=== PATIENT | female | born 1990 | race Caucasian/White ===

== ENCOUNTER 2016-10-03 19:54 | Emergency (ER) | payer BC, MEDICAID ==
[2016-10-03 20:06] VITALS: BP 124/75
[2016-10-03] MEDS ORDERED: Ketorolac 60 MG/2 ML SDV IM ONE (20:20)
[2016-10-03] MEDS ORDERED: Ondansetron 4 MG Tab.DIS PO ONE (20:20)
[2016-10-03] MEDS ORDERED: Haloperidol Lactate 5 MG/ML SDV IM ONE (20:20)
[2016-10-03] MEDS ORDERED: diphenhydrAMINE 50 MG/ML SDV IM ONE (20:20)
--- NOTE | 2016-10-03 20:27 | EDM.PDOC ---
ED HPI GENERAL MEDICAL PROBLEM - General Chief Complaint: Headache Stated Complaint: MIGRAINE Time Seen by Provider: 10/03/16 20:15 Source of Information: Reports: Patient History Limitations: Reports: No Limitations - History of Present Illness INITIAL COMMENTS - FREE TEXT/NARRATIVE: Patient is a 26-year-old female presents ED complaining of right-sided headache behind her right eye described as a throbbing sensation with waxing and waning intensity for the past 3 days. Patient has some photosensitivity with hyperacusis. States she's has been utilizing ibuprofen with minimal relief. Appetite has been in place. She denies any recent trauma. 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 She has never been formally diagnosed with migraine headache by a neurologist. Menstrual cycle ended approximately one week ago. She denies being . Denies any nausea or vomiting, fever/chills , neck stiffness, vision changes, numbness or tingling, or any additional neurological symptoms. This is not described as the worse headache of her life. 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: - Past Surgical History GI Surgical History: Reports: Cholecystectomy Social & Family History - Family History Family Medical History: Noncontributory - Tobacco Use Smoking Status *Q: Never Smoker Second Hand Smoke Exposure: No - Caffeine Use Caffeine Use: Reports: Soda - Recreational Drug Use Recreational Drug Use: No ED ROS GENERAL - Review of Systems Review Of Systems: See Below Constitutional: Reports: No Symptoms HEENT: Reports: No Symptoms Respiratory: Reports: No Symptoms Cardiovascular: Reports: No Symptoms Musculoskeletal: Denies: Neck Pain, Back Pain Neurological: Reports: Headache. Denies: Confusion, Dizziness, Numbness, Tingling, Difficulty Walking - Physical Exam Exam: See Below Exam Limited By: No Limitations General Appearance: Alert, WD/WN, Mild Distress Eye Exam: Bilateral Eye: EOMI, PERRL Ears: Hearing Grossly Normal Nose: Normal Inspection Throat/Mouth: Normal Voice, No Airway Compromise Head Exam: Atraumatic, Normocephalic Neck: Normal Inspection, Supple, Non-Tender, Full Range of Motion. No: Lymphadenopathy (L), Lymphadenopathy (R) Respiratory/Chest: No Respiratory Distress, Lungs Clear, Normal Breath Sounds Cardiovascular: Normal Peripheral Pulses, Regular Rate, Rhythm Neuro Exam (Abbreviated): Alert, Oriented, CN II-XII Intact, Normal Cognition, Normal Gait, No Motor/Sensory Deficits, Other (Cerebellar function intact: finger to nose, rapid alternating movements, and heel to kaiser. ) Back Exam: Normal Inspection Extremities: Normal Inspection, Non-Tender, No Pedal Edema, Normal Capillary Refill Psychiatric: Normal Affect, Normal Mood Skin Exam: Warm, Dry, Intact, Normal Color Course - Vital Signs Last Recorded V/S: Last Vital Signs Temp 97.7 F 10/03/16 20:05 Pulse 59 L 10/03/16 20:05 Resp 20 10/03/16 20:05 BP 124/75 10/03/16 20:05 Pulse Ox 98 10/03/16 20:05 - Orders/Labs/Meds Meds: Medications Discontinued Medications Generic Name Dose Route Start Last Admin Trade Name Sue PRN Reason Stop Dose Admin Diphenhydramine HCl 50 mg 10/03/16 20:20 10/03/16 20:40 Benadryl IM 10/03/16 20:21 50 mg ONETIME ONE Administration Haloperidol Lactate 5 mg 10/03/16 20:20 10/03/16 20:39 Haldol IM 10/03/16 20:21 5 mg ONETIME ONE Administration Ketorolac Tromethamine 60 mg 10/03/16 20:20 10/03/16 20:41 Toradol IM 10/03/16 20:21 60 mg ONETIME ONE Administration Ondansetron HCl 4 mg 10/03/16 20:20 10/03/16 20:37 Zofran Odt PO 10/03/16 20:21 4 mg ONETIME ONE Administration - Re-Assessments/Exams Free Text/Narrative Re-Assessment/Exam: Patient complaining of headache: Migraine symptomatology. Located to the right side with photophobia, hyperacusis, throbbing sensation for the past 3 days. She 's had good oral intake of fluids and food. She has no concerning findings at this time. Will treat her for her headache utilizing Haldol, Benadryl, Toradol, and Zofran. These will be IM injections minus Zofran. Patient is okay with this treatment plan. 10/03/16 20:58 Headache is improving slowly. Medications were given approximately 35 minutes ago. She is ready be discharged home. Will discharge her home with instructions as documented. Departure - Departure Time of Disposition: 20:58 Disposition: Home, Self-Care 01 Condition: Good Clinical Impression: Headache around the eyes - Discharge Information Instructions: General Headache Without Cause, [id number] Referrals: Andreina Nolasco PA-C [Primary Care Provider] - Forms: ED Department Discharge Additional Instructions: No driving this evening since receiving a sedative medications while in the ED. Suggest going home finding a dark room to fall sleep with no distractions. Continue to push the fluids. Ensure adequate rest. Take Tylenol and ibuprofen in alternating fashion for pain. Can utilize cold compresses to the head as needed. Follow-up with your primary care provider as needed. Return to ED for any new or worsening symptoms as discussed.
== END 2016-10-03 21:13 | disposition home or self-care (01) ==
LOC: JD.ED 19:54
DX: R51 Headache (principal); Z90.49 Acquired absence of other specified parts of digestive tract; Z79.899 Other long term (current) drug therapy
CPT/HCPCS: 96372; 99283; A9270; J1200; J1630; J1885

== ENCOUNTER 2018-08-17 04:58 | Inpatient (IN) | payer BC ==
[~2018-08-17 04:58] MED LIST: Sodium Chloride 0.9% 10 ML Syringe FLUSH PRN
[2018-08-17] MEDS: Lactated Ringers 1,000 ML IV SCH ×4 (06:18→19:45)
[2018-08-17] MEDS ORDERED: ceFAZolin 1 GM in Premix Bag 1 BAG IV ONE (07:00)
[2018-08-17] MEDS ORDERED: Metoclopramide 10 MG/2 ML SDV IVPUSH ONE (07:00)
[2018-08-17] MEDS ORDERED: ceFAZolin 2 GM in Premix Bag 1 BAG IV ONE (07:00)
[2018-08-17] MEDS ORDERED: Citric Acid/Sodium Citrate Solution 30 ML Cup PO ONE (07:00)
[2018-08-17] MEDS ORDERED: Oxytocin 10 Units/1 ML SDV ONE (07:18)
[2018-08-17] MEDS ORDERED: Ketorolac 30 MG/ML SDV ONE (07:18)
[2018-08-17] MEDS ORDERED: ceFAZolin 1 GM Vial ONE ×2 (07:18→07:19)
[2018-08-17] MEDS ORDERED: Morphine PF 10 MG/10 ML SDV ONE (07:18)
[2018-08-17] MEDS ORDERED: Lactated Ringers 0 ML ONE (07:18)
[2018-08-17] MEDS ORDERED: Ondansetron 4 MG/2 ML SDV ONE (07:18)
[2018-08-17] MEDS ORDERED: Oxytocin/Lactated Ringers 10 UNIT/1,000 ML BAG IV SCH (07:30)
[2018-08-17] MEDS ORDERED: Nalbuphine 20 MG/ML 1 ML Syringe IVPUSH PRN (07:41)
[2018-08-17] MEDS ORDERED: Ondansetron 4 MG Tab.DIS PO PRN (07:41)
[2018-08-17] MEDS ORDERED: Ampicillin 2 GM in Sodium Chloride 0.9% 100 ML IV ONE (07:50)
--- NOTE | 2018-08-17 07:57 | PCM.PRNOTE ---
- Free Text/Narrative Note: PROCEDURE NOTE Procedure Date: 08/17/2018 Pre-operative Diagnosis: 1. at 39 0/7 wks 2. Breech Presentation Post-operative Diagnosis: As above s/p successful external cephalic version Anesthesia: None Description of Operation/Procedure: The risks, benefits, indications, potential complications, and alternatives were explained to the patient and informed consent obtained. Patient was placed in the supine position. Ultrasound was used to confirm complete breech presentation and appropriate [place]. Hands were placed on the patient's abdomen. The breech was elevated out of the pelvis while clockwise traction was applied to the head. Ultrasound confirmed cephalic presentation as well as cardiac activity. The patient tolerated the procedure well and was placed on continuous electronic monitoring following the procedure. Complications: The patient tolerated the procedure well and no complications were noted. Plan: for today cancelled. Will move to induction of labor instead. See H& P for cancelled for remainder of patient history. Will start Ampicillin for GBS positive status and move on to pitocin/AROM when room available. Will plan frequent assessments of continued vertex presentation. Pain management per patient preference. Anticipate Grace Arteaga MD
[2018-08-17] MEDS: Ampicillin 1 GM in Sodium Chloride 0.9% 100 ML IV SCH ×3 (12:44→20:13)
[2018-08-17] MEDS ORDERED: diphenhydrAMINE 50 MG/ML SDV IVPUSH PRN (13:13)
[2018-08-17] MEDS ORDERED: fentaNYL 100 MCG/2 ML SDV EPIDUR PRN (13:13)
[2018-08-17] MEDS ORDERED: ePHEDrine 50 MG/ML SDV IVPUSH PRN (13:13)
[2018-08-17] MEDS ORDERED: Bupivacaine/fentaNYL/NS 100 ML Bag EPIDUR PRN (13:13)
--- NOTE | 2018-08-17 13:15 | PCM.PREANE ---
Preanesthetic Assessment - Anesthesia/Transfusion/Family Hx Anesthesia History: Prior Anesthesia Without Reaction Family History of Anesthesia Reaction: No Transfusion History: No Prior Transfusion(s) - Review of Systems General: No Symptoms Pulmonary: No Symptoms Cardiovascular: No Symptoms Gastrointestinal: Abdominal Pain (labor pain) Neurological: No Symptoms Other: Reports: None - Physical Assessment NPO Status Date: 08/17/18 NPO Status Time: 00:00 Pulse: 96 O2 Sat by Pulse Oximetry: 100 Respiratory Rate: 14 Blood Pressure: 118/85 Temperature: 36.8 C Vital Signs: Last Vital Signs Temp 36.8 C 08/17/18 05:24 Pulse 96 08/17/18 05:24 Resp 14 08/17/18 05:24 BP 118/85 08/17/18 05:24 Pulse Ox 100 08/17/18 05:24 Height: 1.6 m Weight: 119.748 kg ASA Class: 2 Mental Status: Alert & Oriented x3 Airway Class: Mallampati = 1 Dentition: Reports: Normal Dentition Thyro-Mental Finger Breadths: 2 Mouth Opening Finger Breadths: 2 ROM/Head Extension: Full Lungs: Clear to Auscultation, Normal Respiratory Effort Cardiovascular: Regular Rate, Regular Rhythm - Lab Values: Laboratory Last Values WBC 8.95 K/mm3 (3.98-10.04) 08/17/18 06:00 RBC 3.42 M/mm3 (3.98-5.22) L 08/17/18 06:00 Hgb 9.4 gm/L (11.2-15.7) L 08/17/18 06:00 Hct 30.0 % (34.1-44.9) L 08/17/18 06:00 MCV 87.7 fl (79.4-94.8) D 08/17/18 06:00 MCH 27.5 pg (25.6-32.2) 08/17/18 06:00 MCHC 31.3 g/dl (32.2-35.5) L 08/17/18 06:00 RDW Std Deviation 50.5 fL (36.4-46.3) H 08/17/18 06:00 Plt Count 280 K/mm3 (182-369) 08/17/18 06:00 MPV 9.2 fl (9.4-12.3) L 08/17/18 06:00 Neut % (Auto) 73.0 % (34.0-71.1) H 08/17/18 06:00 Lymph % (Auto) 15.4 % (19.3-51.7) L 08/17/18 06:00 [place] % (Auto) 9.8 % (4.7-12.5) 08/17/18 06:00 Eos % (Auto) 0.7 (0.7-5.8) 08/17/18 06:00 Baso % (Auto) 0.2 % (0.1-1.2) 08/17/18 06:00 Neut # (Auto) 6.53 K/mm3 (1.56-6.13) H 08/17/18 06:00 Lymph # (Auto) 1.38 K/mm3 (1.18-3.74) 08/17/18 06:00 [place] # (Auto) 0.88 K/mm3 (0.24-0.36) H 08/17/18 06:00 Eos # (Auto) 0.06 K/mm3 (0.04-0.36) 08/17/18 06:00 Baso # (Auto) 0.02 K/mm3 (0.01-0.08) 08/17/18 06:00 Blood Type O POSITIVE 08/17/18 06:00 Gel Antibody Screen Negative 08/17/18 06:00 - Allergies Allergies/Adverse Reactions: Allergies Allergy/AdvReac Type Severity Reaction Status Date / Time red dye Allergy Rash Verified 08/17/18 05:43 Chlorine Allergy Rash Uncoded 08/17/18 05:43 - Anesthesia Plan Pre-Op Medication Ordered: None - Acknowledgements Anesthesia Type Planned: Epidural Pt an Appropriate Candidate for the Planned Anesthesia: Yes Alternatives and Risks of Anesthesia Discussed w Pt/Guardian: Yes Pt/Guardian Understands and Agrees with Anesthesia Plan: Yes PreAnesthesia Questionnaire Gastrointestinal History: Reports: GERD 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: Reports: Polycystic Ovaries, Psychiatric History: Reports: Depression Other Psychiatric History: PPD - Past Surgical History GI Surgical History: Reports: Cholecystectomy - SUBSTANCE USE Smoking Status *Q: Never Smoker Tobacco Use Within Last Twelve Months: No Second Hand Smoke Exposure: No Recreational Drug Use History: No - HOME MEDS Home Medications: Home Meds Omeprazole 20 mg PO DAILY 10/03/16 [History] PNV95/Ferrous Fumarate/FA [ Tablet] 1 tab PO DAILY 08/17/18 [History] buPROPion HCl [Wellbutrin Xl] 300 mg PO DAILY 08/17/18 [History] - CURRENT (IN HOUSE) MEDS Current Meds: Current Medications Lactated Ringer's (Ringers, Lactated) 1,000 mls @ 125 mls/hr IV ASDIRECTED RADHA Last Admin: 08/17/18 06:19 Dose: 125 mls/hr Oxytocin/Lactated Ringer's (Pitocin In Lr 10 Units/1,000 Ml) 10 unit in 1,000 mls @ 100 mls/hr IV ASDIRECTED RADHA; Protocol Ampicillin Sodium 1 gm/ Sodium (Chloride) 100 mls @ 200 mls/hr IV Q4H [facility] Last Admin: 08/17/18 12:44 Dose: 200 mls/hr Nalbuphine HCl (Nubain) 10 mg IVPUSH Q2H PRN PRN Reason: pain Ondansetron HCl (Zofran Odt) 4 mg PO Q4H PRN PRN Reason: Nausea/Vomiting Sodium Chloride (Saline Flush) 10 ml FLUSH ASDIRECTED PRN PRN Reason: Keep Vein Open Discontinued Medications Cefazolin Sodium (Ancef) Confirm Administered Dose 2 gm .ROUTE .STK-MED ONE Stop: 08/17/18 07:19 Cefazolin Sodium (Ancef) Confirm Administered Dose 1 gm .ROUTE .STK-MED ONE Stop: 08/17/18 07:20 Citric Acid/Sodium Citrate (Bicitra Solution) 30 ml PO ONETIME ONE Stop: 08/17/18 07:01 Cefazolin Sodium/Dextrose 1 gm (/ Premix) 50 mls @ 100 mls/hr IV ONETIME ONE Stop: 08/17/18 07:29 Cefazolin Sodium/Dextrose 2 gm (/ Premix) 50 mls @ 100 mls/hr IV ONETIME ONE Stop: 08/17/18 07:29 Lactated Ringer's (Ringers, Lactated) Confirm Administered Dose 2,000 mls @ as directed .ROUTE .STK-MED ONE Stop: 08/17/18 07:19 Ampicillin Sodium 2 gm/ Sodium (Chloride) 100 mls @ 200 mls/hr IV ONETIME ONE Stop: 08/17/18 08:19 Last Admin: 08/17/18 08:03 Dose: 200 mls/hr Ketorolac Tromethamine (Toradol) Confirm Administered Dose 30 mg .ROUTE .STK- MED ONE Stop: 08/17/18 07:19 Metoclopramide HCl (Reglan) 10 mg IVPUSH ONETIME ONE Stop: 08/17/18 07:01 Morphine Sulfate (Duramorph Pf) Confirm Administered Dose 10 mg .ROUTE .STK-MED ONE Stop: 08/17/18 07:19 Ondansetron HCl (Zofran) Confirm Administered Dose 4 mg .ROUTE .STK-MED ONE Stop: 08/17/18 07:19 Oxytocin (Pitocin) Confirm Administered Dose 20 unit .ROUTE .STK-MED ONE Stop: 08/17/18 07:19
[2018-08-17] MEDS: Oxytocin/Lactated Ringers 10 UNIT/1,000 ML BAG IV SCH (13:59)
--- NOTE | 2018-08-17 17:31 | PCM.PNLD ---
Labor Progress Note - VS & Meds Vital Signs: Last Vital Signs Temp 36.8 C 08/17/18 13:15 Pulse 96 08/17/18 13:15 Resp 14 08/17/18 13:15 BP 118/85 08/17/18 13:15 Pulse Ox 100 08/17/18 13:15 Active Medications: Current Medications Diphenhydramine HCl (Benadryl) 25 mg IVPUSH Q6H PRN PRN Reason: Itching Ephedrine Sulfate (Ephedrine Sulfate) 5 mg IVPUSH ASDIRECTED PRN PRN Reason: HYPOTENTSION Fentanyl (Sublimaze) 100 mcg EPIDUR Q3H PRN PRN Reason: Pain Fentanyl/Bupivacaine HCl (Fentanyl/Bupivacaine/Ns 2 Mcg-0.125% 100 Ml) 100 ml EPIDUR ASDIRECTED PRN PRN Reason: Pain Lactated Ringer's (Ringers, Lactated) 1,000 mls @ 125 mls/hr IV ASDIRECTED RADHA Last Admin: 08/17/18 06:19 Dose: 125 mls/hr Oxytocin/Lactated Ringer's (Pitocin In Lr 10 Units/1,000 Ml) 10 unit in 1,000 mls @ 100 mls/hr IV ASDIRECTED RADHA; Protocol Ampicillin Sodium 1 gm/ Sodium (Chloride) 100 mls @ 200 mls/hr IV Q4H RADHA Last Admin: 08/17/18 16:07 Dose: 200 mls/hr Oxytocin/Lactated Ringer's (Pitocin In Lr 10 Units/1,000 Ml) 10 unit in 1,000 mls @ 12 mls/hr IV TITRATE RADHA; Protocol Last Titration: 08/17/18 16:40 Dose: 12 munits/min, 72 mls/hr Nalbuphine HCl (Nubain) 10 mg IVPUSH Q2H PRN PRN Reason: pain Ondansetron HCl (Zofran Odt) 4 mg PO Q4H PRN PRN Reason: Nausea/Vomiting Sodium Chloride (Saline Flush) 10 ml FLUSH ASDIRECTED PRN PRN Reason: Keep Vein Open Discontinued Medications Cefazolin Sodium (Ancef) Confirm Administered Dose 2 gm .ROUTE .STK-MED ONE Stop: 08/17/18 07:19 Cefazolin Sodium (Ancef) Confirm Administered Dose 1 gm .ROUTE .STK-MED ONE Stop: 08/17/18 07:20 Citric Acid/Sodium Citrate (Bicitra Solution) 30 ml PO ONETIME ONE Stop: 08/17/18 07:01 Cefazolin Sodium/Dextrose 1 gm (/ Premix) 50 mls @ 100 mls/hr IV ONETIME ONE Stop: 08/17/18 07:29 Cefazolin Sodium/Dextrose 2 gm (/ Premix) 50 mls @ 100 mls/hr IV ONETIME ONE Stop: 08/17/18 07:29 Lactated Ringer's (Ringers, Lactated) Confirm Administered Dose 2,000 mls @ as directed .ROUTE .STK-MED ONE Stop: 08/17/18 07:19 Ampicillin Sodium 2 gm/ Sodium (Chloride) 100 mls @ 200 mls/hr IV ONETIME ONE Stop: 08/17/18 08:19 Last Admin: 08/17/18 08:03 Dose: 200 mls/hr Ketorolac Tromethamine (Toradol) Confirm Administered Dose 30 mg .ROUTE .STK- MED ONE Stop: 08/17/18 07:19 Metoclopramide HCl (Reglan) 10 mg IVPUSH ONETIME ONE Stop: 08/17/18 07:01 Morphine Sulfate (Duramorph Pf) Confirm Administered Dose 10 mg .ROUTE .STK-MED ONE Stop: 08/17/18 07:19 Ondansetron HCl (Zofran) Confirm Administered Dose 4 mg .ROUTE .STK-MED ONE Stop: 08/17/18 07:19 Oxytocin (Pitocin) Confirm Administered Dose 20 unit .ROUTE .STK-MED ONE Stop: 08/17/18 07:19 - Uterine Contractions Uterine Monitoring Mode: External [place] Contraction Intensity: Moderate - Monitoring Monitor Mode: External Ultrasound Heart Rate (FHR) Baseline: 135 Heart Rate (FHR) Variability: Moderate (6-25 bmp) Accelerations: Present, 15x15 Decelerations: None Strip Review: Category I - Vaginal Exam Dilation (cm): 2-3 Effacement (Percent): 50 Station: -2 Cervical Position: Midposition - Labor Progress (Free Text) Labor Progress: Doing well. Confirmed still vertex with bedside scan. Pitocin at 14. AROM performed with release of moderate amount of clear fluid. Continue present management
[2018-08-17] MEDS ORDERED: Misoprostol 200 MCG Tab ONE (22:00)
[2018-08-17] MEDS ORDERED: Bupivacaine 0.25% 10 ML SDV ONE (22:00)
--- NOTE | 2018-08-18 00:02 | PCM.PNLD ---
Labor Progress Note - VS & Meds Vital Signs: Last Vital Signs Temp 36.8 C 08/17/18 13:15 Pulse 96 08/17/18 13:15 Resp 14 08/17/18 13:15 BP 118/85 08/17/18 13:15 Pulse Ox 100 08/17/18 13:15 Active Medications: Current Medications Diphenhydramine HCl (Benadryl) 25 mg IVPUSH Q6H PRN PRN Reason: Itching Last Admin: 08/17/18 23:28 Dose: 25 mg Ephedrine Sulfate (Ephedrine Sulfate) 5 mg IVPUSH ASDIRECTED PRN PRN Reason: HYPOTENTSION Fentanyl (Sublimaze) 100 mcg EPIDUR Q3H PRN PRN Reason: Pain Last Admin: 08/17/18 19:03 Dose: 100 mcg Fentanyl/Bupivacaine HCl (Fentanyl/Bupivacaine/Ns 2 Mcg-0.125% 100 Ml) 100 ml EPIDUR ASDIRECTED PRN PRN Reason: Pain Last Admin: 08/17/18 19:03 Dose: 100 ml Lactated Ringer's (Ringers, Lactated) 1,000 mls @ 125 mls/hr IV ASDIRECTED RADHA Last Admin: 08/17/18 19:45 Dose: 125 mls/hr Oxytocin/Lactated Ringer's (Pitocin In Lr 10 Units/1,000 Ml) 10 unit in 1,000 mls @ 100 mls/hr IV ASDIRECTED RADHA; Protocol Ampicillin Sodium 1 gm/ Sodium (Chloride) 100 mls @ 200 mls/hr IV Q4H RADHA Last Admin: 08/17/18 20:13 Dose: 200 mls/hr Oxytocin/Lactated Ringer's (Pitocin In Lr 10 Units/1,000 Ml) 10 unit in 1,000 mls @ 12 mls/hr IV TITRATE RADHA; Protocol Last Titration: 08/17/18 23:15 Dose: 16 munits/min, 96 mls/hr Nalbuphine HCl (Nubain) 10 mg IVPUSH Q2H PRN PRN Reason: pain Ondansetron HCl (Zofran Odt) 4 mg PO Q4H PRN PRN Reason: Nausea/Vomiting Sodium Chloride (Saline Flush) 10 ml FLUSH ASDIRECTED PRN PRN Reason: Keep Vein Open Discontinued Medications Cefazolin Sodium (Ancef) Confirm Administered Dose 2 gm .ROUTE .STK-MED ONE Stop: 08/17/18 07:19 Cefazolin Sodium (Ancef) Confirm Administered Dose 1 gm .ROUTE .STK-MED ONE Stop: 08/17/18 07:20 Citric Acid/Sodium Citrate (Bicitra Solution) 30 ml PO ONETIME ONE Stop: 08/17/18 07:01 Cefazolin Sodium/Dextrose 1 gm (/ Premix) 50 mls @ 100 mls/hr IV ONETIME ONE Stop: 08/17/18 07:29 Cefazolin Sodium/Dextrose 2 gm (/ Premix) 50 mls @ 100 mls/hr IV ONETIME ONE Stop: 08/17/18 07:29 Lactated Ringer's (Ringers, Lactated) Confirm Administered Dose 2,000 mls @ as directed .ROUTE .STK-MED ONE Stop: 08/17/18 07:19 Ampicillin Sodium 2 gm/ Sodium (Chloride) 100 mls @ 200 mls/hr IV ONETIME ONE Stop: 08/17/18 08:19 Last Admin: 08/17/18 08:03 Dose: 200 mls/hr Ketorolac Tromethamine (Toradol) Confirm Administered Dose 30 mg .ROUTE .STK- MED ONE Stop: 08/17/18 07:19 Metoclopramide HCl (Reglan) 10 mg IVPUSH ONETIME ONE Stop: 08/17/18 07:01 Morphine Sulfate (Duramorph Pf) Confirm Administered Dose 10 mg .ROUTE .STK-MED ONE Stop: 08/17/18 07:19 Ondansetron HCl (Zofran) Confirm Administered Dose 4 mg .ROUTE .STK-MED ONE Stop: 08/17/18 07:19 Oxytocin (Pitocin) Confirm Administered Dose 20 unit .ROUTE .STK-MED ONE Stop: 08/17/18 07:19 - Uterine Contractions Uterine Monitoring Mode: External [place] Contraction Intensity: Moderate - Monitoring Monitor Mode: External Ultrasound Heart Rate (FHR) Baseline: 145 Heart Rate (FHR) Variability: Moderate (6-25 bmp) Accelerations: Present, 15x15 Decelerations: Variable Strip Review: Category II - Vaginal Exam Dilation (cm): 5 Effacement (Percent): 75 Station: -2 Cervical Position: Midposition - Labor Progress (Free Text) Labor Progress: Patient received epidural around 1900. Checked by nursing at 1999 and thought to be 4-5 cm. Checked again at 2300 and only about 5 cm and high. Pitocin backed down slightly compared to previous in labor course. Now at 14. IUPC placed. Bedside US again confirms VTX presentation. Continue pitocin per protocol. Continue antibiotics for GBS prophylaxis
[2018-08-18] MEDS: Ampicillin 1 GM in Sodium Chloride 0.9% 100 ML IV SCH ×2 (00:15→04:15)
[2018-08-18] MEDS: Lactated Ringers 1,000 ML IV SCH (00:51)
--- NOTE | 2018-08-18 00:51 | PCM.SN ---
- Free Text/Narrative Note: 1230 to room 29 pt c/o pain 5/10 bolus epidural with .25% bupivacainePF increase gtt to 14ml/hr 1248 pt "feel better" out of room at 1250
[2018-08-18] MEDS: Oxytocin/Lactated Ringers 10 UNIT/1,000 ML BAG IV SCH (02:29)
[2018-08-18] MEDS ORDERED: Oxytocin/Lactated Ringers 10 UNIT/1,000 ML BAG IV SCH (03:15)
--- NOTE | 2018-08-18 05:08 | PCM.SN ---
- Free Text/Narrative Note: 4130 called to bolus epidural pain 10/10 2ml fentanyl 10 ml .25% bupivicainePF VSS "feels better" out room at 0503
[2018-08-18] MEDS ORDERED: Misoprostol 200 MCG Tab PO ONE (05:23)
--- NOTE | 2018-08-18 05:38 | PCM.DEL ---
L & D Note - General Info Date of Service: 08/18/18 - Delivery Note Labor: Induced by ARM, Induced by Oxytocin Cervical Ripening Method: Balloon Device Delivery Outcome: Livebirth Infant Delivery Method: Spontaneous Vaginal Delivery-Single Infant Delivery Mode: Spontaneous Presentation: Right Occiput Anterior (ALESSANDRO) Nuchal Cord: None Anesthesia Type: Epidural Amniotic Fluid Description: Clear Episiotomy Type: None Laceration: None Placenta: Intact, Spontaneous Cord: 3 Vessels Estimated Blood Loss: 300 [place]: Bulb Syringe, Stimulated, Warmed, [place] Used, Warmer Used Delivery Comments (Free Text/Narrative):: Patient found to be complete and began pushing. With pushing effort head delivered from ALESSANDRO presentation. No nuchal cord present. With gentle downward traction the shoulders and body delivered. Infant placed on maternal abdomen. Cord clamped and cut. Cord blood obtained. Placenta allowed time to separate and expelled intact. Moderate bleeding noted. Given 600 mcg of buccal cytotec with good relief. Inspection of perineum showed no lacerations - General Info Date of Service: 08/18/18 - Patient Data Vitals - Most Recent: Last Vital Signs Temp 36.8 C 08/18/18 02:32 Pulse 88 08/18/18 02:32 Resp 15 08/18/18 02:32 BP 119/48 L 08/18/18 02:32 Pulse Ox 100 08/17/18 13:15 Weight - Most Recent: 119.748 kg I&O - Last 24 Hours: Intake & Output 08/17/18 08/17/18 08/18/18 14:59 22:59 06:59 Intake Total 1360 3400 1000 Output Total 1800 Balance 1360 3400 -800 Lab Results Last 24 Hours: Laboratory Results - last 24 hr 08/17/18 08/17/18 08/17/18 Range/Units 06:00 06:00 06:00 WBC 8.95 (3.98-10.04) K/mm3 RBC 3.42 L (3.98-5.22) M/mm3 Hgb 9.4 L (11.2-15.7) gm/L Hct 30.0 L (34.1-44.9) % MCV 87.7 D (79.4-94.8) fl MCH 27.5 (25.6-32.2) pg MCHC 31.3 L (32.2-35.5) g/dl RDW Std Deviation 50.5 H (36.4-46.3) fL Plt Count 280 (182-369) K/mm3 MPV 9.2 L (9.4-12.3) fl Neut % (Auto) 73.0 H (34.0-71.1) % Lymph % (Auto) 15.4 L (19.3-51.7) % [place] % (Auto) 9.8 (4.7-12.5) % Eos % (Auto) 0.7 (0.7-5.8) Baso % (Auto) 0.2 (0.1-1.2) % Neut # (Auto) 6.53 H (1.56-6.13) K/mm3 Lymph # (Auto) 1.38 (1.18-3.74) K/mm3 [place] # (Auto) 0.88 H (0.24-0.36) K/mm3 Eos # (Auto) 0.06 (0.04-0.36) K/mm3 Baso # (Auto) 0.02 (0.01-0.08) K/mm3 RPR Non-reactive (NONREACTIVE) Blood Type O POSITIVE Gel Antibody Screen Negative Med Orders - Current: Current Medications Diphenhydramine HCl (Benadryl) 25 mg IVPUSH Q6H PRN PRN Reason: Itching Last Admin: 08/17/18 23:28 Dose: 25 mg Ephedrine Sulfate (Ephedrine Sulfate) 5 mg IVPUSH ASDIRECTED PRN PRN Reason: HYPOTENTSION Fentanyl (Sublimaze) 100 mcg EPIDUR Q3H PRN PRN Reason: Pain Last Admin: 08/17/18 19:03 Dose: 100 mcg Fentanyl/Bupivacaine HCl (Fentanyl/Bupivacaine/Ns 2 Mcg-0.125% 100 Ml) 100 ml EPIDUR ASDIRECTED PRN PRN Reason: Pain Last Admin: 08/17/18 19:03 Dose: 100 ml Lactated Ringer's (Ringers, Lactated) 1,000 mls @ 125 mls/hr IV ASDIRECTED RADHA Last Admin: 08/18/18 00:51 Dose: 125 mls/hr Oxytocin/Lactated Ringer's (Pitocin In Lr 10 Units/1,000 Ml) 10 unit in 1,000 mls @ 100 mls/hr IV ASDIRECTED RADHA; Protocol Ampicillin Sodium 1 gm/ Sodium (Chloride) 100 mls @ 200 mls/hr IV Q4H RADHA Last Admin: 08/18/18 04:15 Dose: 200 mls/hr Oxytocin/Lactated Ringer's (Pitocin In Lr 10 Units/1,000 Ml) 10 unit in 1,000 mls @ 120 mls/hr IV TITRATE RADHA; Protocol Nalbuphine HCl (Nubain) 10 mg IVPUSH Q2H PRN PRN Reason: pain Ondansetron HCl (Zofran Odt) 4 mg PO Q4H PRN PRN Reason: Nausea/Vomiting Sodium Chloride (Saline Flush) 10 ml FLUSH ASDIRECTED PRN PRN Reason: Keep Vein Open Discontinued Medications Cefazolin Sodium (Ancef) Confirm Administered Dose 2 gm .ROUTE .STK-MED ONE Stop: 08/17/18 07:19 Cefazolin Sodium (Ancef) Confirm Administered Dose 1 gm .ROUTE .STK-MED ONE Stop: 08/17/18 07:20 Citric Acid/Sodium Citrate (Bicitra Solution) 30 ml PO ONETIME ONE Stop: 08/17/18 07:01 Cefazolin Sodium/Dextrose 1 gm (/ Premix) 50 mls @ 100 mls/hr IV ONETIME ONE Stop: 08/17/18 07:29 Cefazolin Sodium/Dextrose 2 gm (/ Premix) 50 mls @ 100 mls/hr IV ONETIME ONE Stop: 08/17/18 07:29 Lactated Ringer's (Ringers, Lactated) Confirm Administered Dose 2,000 mls @ as directed .ROUTE .STK-MED ONE Stop: 08/17/18 07:19 Ampicillin Sodium 2 gm/ Sodium (Chloride) 100 mls @ 200 mls/hr IV ONETIME ONE Stop: 08/17/18 08:19 Last Admin: 08/17/18 08:03 Dose: 200 mls/hr Oxytocin/Lactated Ringer's (Pitocin In Lr 10 Units/1,000 Ml) 10 unit in 1,000 mls @ 12 mls/hr IV TITRATE RADHA; Protocol Last Titration: 08/18/18 04:15 Dose: 23 munits/min, 138 mls/hr Ketorolac Tromethamine (Toradol) Confirm Administered Dose 30 mg .ROUTE .STK- MED ONE Stop: 08/17/18 07:19 Metoclopramide HCl (Reglan) 10 mg IVPUSH ONETIME ONE Stop: 08/17/18 07:01 Morphine Sulfate (Duramorph Pf) Confirm Administered Dose 10 mg .ROUTE .STK-MED ONE Stop: 08/17/18 07:19 Ondansetron HCl (Zofran) Confirm Administered Dose 4 mg .ROUTE .STK-MED ONE Stop: 08/17/18 07:19 Oxytocin (Pitocin) Confirm Administered Dose 20 unit .ROUTE .STK-MED ONE Stop: 08/17/18 07:19 - Problem List & Annotations (1) 39 weeks gestation of SNOMED Code(s): 27683455 Code(s): Z3A.39 - 39 WEEKS GESTATION OF Status: Acute Current Visit: Yes (2) Vaginal delivery SNOMED Code(s): 142433248 Code(s): O80 - ENCOUNTER FOR FULL-TERM UNCOMPLICATED DELIVERY Status: Acute Current Visit: No - Problem List Review Problem List Initiated/Reviewed/Updated: Yes - My Orders Last 24 Hours: My Active Orders 08/17/18 06:00 Lactated Ringers [Ringers, Lactated] 1,000 ml IV ASDIRECTED 08/17/18 07:30 Oxytocin/Lactated Ringers [Pitocin in LR 10 Units/1,000 ML] 10 unit in 1,000 ml IV ASDIRECTED 08/17/18 07:41 Nalbuphine [Nubain] 10 mg IVPUSH Q2H PRN Ondansetron [Zofran ODT] 4 mg PO Q4H PRN 08/17/18 07:42 Communication Order [RC] ASDIRECTED Communication Order [RC] ASDIRECTED Notify Provider [RC] PFP Electronic Heart Tones Ext w TOCO [WOMSER] Routine Electronic Heart Tones Internal [WOMSER] Per Unit Routine 08/17/18 07:46 Heart Tones [RC] ASDIRECTED 08/17/18 12:00 Ampicillin 1 gm Sodium Chloride 0.9% [Normal Saline] 100 ml IV Q4H 08/17/18 13:50 Patient Status [ADT] Routine 08/17/18 Lunch Regular Diet [DIET] 08/18/18 03:15 Oxytocin/Lactated Ringers [Pitocin in LR 10 Units/1,000 ML] 10 unit in 1,000 ml IV TITRATE 08/18/18 05:35 Patient Status Manage Transfer [TRANSFER] Routine - Assessment Assessment:: 28 y/o G3 now P3003 PPD#1 from at 39 1/7 wks - Plan Plan:: * Routine cares * Encourage breast feeding * Discharge home in 1-2 days
[2018-08-18] MEDS ORDERED: Lanolin 100% Cream 7 GM Tube TOP PRN (05:57)
[2018-08-18] MEDS ORDERED: Benzocaine/Menthol 20%-0.5% Spray 56 GM Canister TOP PRN (05:57)
[2018-08-18] MEDS ORDERED: Witch Hazel Medicated Pads 40/Jar TOP PRN (05:57)
[2018-08-18] MEDS ORDERED: Acetaminophen 325 MG Tab PO PRN (05:57)
[2018-08-18] MEDS ORDERED: Oxytocin/Lactated Ringers 10 UNIT/1,000 ML BAG IV ONE (06:02)
--- NOTE | 2018-08-18 08:40 | PCM48HPAN ---
Post Anesthesia Note - EVALUATION WITHIN 48HRS OF ANESTHETIC Vital Signs in Normal Range: Yes Patient Participated in Evaluation: Yes Respiratory Function Stable: Yes Airway Patent: Yes Cardiovascular Function Stable: Yes Hydration Status Stable: Yes Pain Control Satisfactory: Yes Nausea and Vomiting Control Satisfactory: Yes Mental Status Recovered: Yes - COMMENTS/OBSERVATIONS Free Text/Narrative:: Patient state later in labor process pain in vagina noted. Epidural rebolused but not 100% pain relief achieved. Patient states this also happened with prior delivery. Patient expresses gratitude and satisfaction with overall pain control.
[2018-08-18] MEDS: Ibuprofen 600 MG Tab PO PRN (19:03)
[2018-08-18] MEDS: Docusate Sodium 100 MG Cap PO PRN (20:55)
[2018-08-19] MEDS: Ibuprofen 600 MG Tab PO PRN ×2 (00:31→08:56)
--- NOTE | 2018-08-19 06:46 | PCM.DCSUM1 ---
Discharge Summary - Discharge Data Discharge Date: 08/19/18 Discharge Disposition: Home, Self-Care 01 Condition: Good - Discharge Diagnosis/Problem(s) (1) Breech presentation SNOMED Code(s): 3516835 ICD Code: O32.1XX0 - MATERNAL CARE FOR BREECH PRESENTATION, UNSP Status: Acute Qualifiers: Fetus number: single or unspecified fetus Qualified Code(s): O32.1XX0 - Maternal care for breech presentation, not applicable or unspecified (2) Successful external cephalic version SNOMED Code(s): 13434492 ICD Code: [id number] - Status: Acute (3) 39 weeks gestation of SNOMED Code(s): 78387694 ICD Code: Z3A.39 - 39 WEEKS GESTATION OF Status: Acute (4) Vaginal delivery SNOMED Code(s): 392418318 ICD Code: O80 - ENCOUNTER FOR FULL-TERM UNCOMPLICATED DELIVERY Status: Acute - Patient Summary/Data Complications: None Consults: None Recommended Follow-up Testing/Procedures: Follow up in 3 weeks for check Hospital Course: 28 y/o at 39 0/7 wks presented for attempted ECV. This was done and successful. See procedure note. Induction then begun with pitocin and AROM. She progressed well to complete dilation and underwent an uncomplicated . See delivery note for full details. she did well and was discharged home on PPD#1 - Patient Instructions Diet: Regular Diet as Tolerated Activity: As Tolerated Driving: May Drive Today Showering/Bathing: May Shower Showering/Bathing, Other: May Bathe Notify Provider of: Fever, Increased Pain, Swelling and Redness, Drainage, Nausea and/or Vomiting - Discharge Plan *PRESCRIPTION DRUG MONITORING PROGRAM REVIEWED*: Not Applicable *COPY OF PRESCRIPTION DRUG MONITORING REPORT IN PATIENT JAME: Not Applicable Home Medications: Home Meds PNV95/Ferrous Fumarate/FA [ Tablet] 1 tab PO DAILY 08/17/18 [History] buPROPion HCl [Wellbutrin Xl] 300 mg PO DAILY 08/17/18 [History] Docusate Sodium [Colace] 100 mg PO BID PRN cap 08/19/18 [Rx] Ibuprofen [Motrin] 600 mg PO Q6H PRN tablet 08/19/18 [Rx] Patient Handouts: Home Care Instructions for Mom Referrals: Grace Arteaga MD [Primary Care Provider] - (3 weeks for check ) - Discharge Summary/Plan Comment DC Time >30 min.: No - Patient Data Vitals - Most Recent: Last Vital Signs Temp 36.7 C 08/19/18 04:09 Pulse 72 08/19/18 04:09 Resp 16 08/19/18 04:09 BP 108/69 08/19/18 04:09 Pulse Ox 100 08/19/18 04:09 Weight - Most Recent: 119.748 kg I&O - Last 24 hours: Intake & Output 08/18/18 08/18/18 08/19/18 14:59 22:59 06:59 Intake Total 300 180 Balance 300 180 Med Orders - Current: Current Medications Acetaminophen (Tylenol) 650 mg PO Q4H PRN PRN Reason: mild pain or fever Benzocaine/Menthol (Dermoplast Pain Relief [place]) 0 gm TOP ASDIRECTED PRN PRN Reason: Perineal Comfort Measure Docusate Sodium (Colace) 100 mg PO BID PRN PRN Reason: Constipation Last Admin: 08/18/18 20:55 Dose: 100 mg Emollient Ointment (Lansinoh Hpa) 0 gm TOP ASDIRECTED PRN PRN Reason: Sore Nipples Last Admin: 08/19/18 00:28 Dose: 1 tube Ibuprofen (Motrin) 600 mg PO Q6H PRN PRN Reason: Mild pain or fever Last Admin: 08/19/18 00:31 Dose: 600 mg Witch Sarai (Tucks) 1 pad TOP ASDIRECTED PRN PRN Reason: Perineal Comfort Measure Discontinued Medications Bupivacaine HCl (Sensorcaine-Mpf 0.25%) 20 ml .ROUTE .STK-MED ONE Stop: 08/17/18 22:01 Cefazolin Sodium (Ancef) Confirm Administered Dose 2 gm .ROUTE .STK-MED ONE Stop: 08/17/18 07:19 Cefazolin Sodium (Ancef) Confirm Administered Dose 1 gm .ROUTE .STK-MED ONE Stop: 08/17/18 07:20 Citric Acid/Sodium Citrate (Bicitra Solution) 30 ml PO ONETIME ONE Stop: 08/17/18 07:01 Last Admin: 08/18/18 21:21 Dose: Not Given Diphenhydramine HCl (Benadryl) 25 mg IVPUSH Q6H PRN PRN Reason: Itching Last Admin: 08/17/18 23:28 Dose: 25 mg Ephedrine Sulfate (Ephedrine Sulfate) 5 mg IVPUSH ASDIRECTED PRN PRN Reason: HYPOTENTSION Fentanyl (Sublimaze) 100 mcg EPIDUR Q3H PRN PRN Reason: Pain Last Admin: 08/17/18 19:03 Dose: 100 mcg Fentanyl/Bupivacaine HCl (Fentanyl/Bupivacaine/Ns 2 Mcg-0.125% 100 Ml) 100 ml EPIDUR ASDIRECTED PRN PRN Reason: Pain Last Admin: 08/17/18 19:03 Dose: 100 ml Cefazolin Sodium/Dextrose 1 gm (/ Premix) 50 mls @ 100 mls/hr IV ONETIME ONE Stop: 08/17/18 07:29 Last Admin: 08/18/18 21:20 Dose: Not Given Cefazolin Sodium/Dextrose 2 gm (/ Premix) 50 mls @ 100 mls/hr IV ONETIME ONE Stop: 08/17/18 07:29 Last Admin: 08/18/18 21:22 Dose: Not Given Lactated Ringer's (Ringers, Lactated) 1,000 mls @ 125 mls/hr IV ASDIRECTED RADHA Last Admin: 08/18/18 00:51 Dose: 125 mls/hr Oxytocin/Lactated Ringer's (Pitocin In Lr 10 Units/1,000 Ml) 10 unit in 1,000 mls @ 100 mls/hr IV ASDIRECTED RADHA; Protocol Lactated Ringer's (Ringers, Lactated) Confirm Administered Dose 0 mls @ as directed .ROUTE .STK-MED ONE Stop: 08/17/18 07:19 Ampicillin Sodium 2 gm/ Sodium (Chloride) 100 mls @ 200 mls/hr IV ONETIME ONE Stop: 08/17/18 08:19 Last Admin: 08/17/18 08:03 Dose: 200 mls/hr Ampicillin Sodium 1 gm/ Sodium (Chloride) 100 mls @ 200 mls/hr IV Q4H RADHA Last Admin: 08/18/18 04:15 Dose: 200 mls/hr Oxytocin/Lactated Ringer's (Pitocin In Lr 10 Units/1,000 Ml) 10 unit in 1,000 mls @ 12 mls/hr IV TITRATE RADHA; Protocol Last Titration: 08/18/18 05:20 Dose: 999 mls/hr Oxytocin/Lactated Ringer's (Pitocin In Lr 10 Units/1,000 Ml) 10 unit in 1,000 mls @ 120 mls/hr IV TITRATE RADHA; Protocol Oxytocin/Lactated Ringer's (Pitocin In Lr 10 Units/1,000 Ml) Confirm Administered Dose 10 unit in 1,000 mls @ as directed IV .STK-MED ONE Stop: 08/18/18 06:03 Last Admin: 08/18/18 06:00 Dose: 250 mls/hr Ketorolac Tromethamine (Toradol) Confirm Administered Dose 30 mg .ROUTE .STK- MED ONE Stop: 08/17/18 07:19 Metoclopramide HCl (Reglan) 10 mg IVPUSH ONETIME ONE Stop: 08/17/18 07:01 Last Admin: 08/18/18 21:22 Dose: Not Given Misoprostol (Cytotec) 600 mcg PO ONETIME ONE Stop: 08/18/18 05:24 Last Admin: 08/18/18 05:23 Dose: 600 mcg Misoprostol (Cytotec) 600 mcg .ROUTE .STK-MED ONE Stop: 08/17/18 22:01 Morphine Sulfate (Duramorph Pf) Confirm Administered Dose 10 mg .ROUTE .STK-MED ONE Stop: 08/17/18 07:19 Nalbuphine HCl (Nubain) 10 mg IVPUSH Q2H PRN PRN Reason: pain Ondansetron HCl (Zofran) Confirm Administered Dose 4 mg .ROUTE .STK-MED ONE Stop: 08/17/18 07:19 Ondansetron HCl (Zofran Odt) 4 mg PO Q4H PRN PRN Reason: Nausea/Vomiting Oxytocin (Pitocin) Confirm Administered Dose 20 unit .ROUTE .STK-MED ONE Stop: 08/17/18 07:19 Sodium Chloride (Saline Flush) 10 ml FLUSH ASDIRECTED PRN PRN Reason: Keep Vein Open
--- NOTE | 2018-08-19 06:46 | PCM.PNPP ---
- General Info Date of Service: 08/19/18 Functional Status: Reports: Pain Controlled, Tolerating Diet, Ambulating, Urinating - Review of Systems General: Reports: No Symptoms Pulmonary: Reports: No Symptoms Cardiovascular: Reports: No Symptoms Gastrointestinal: Reports: No Symptoms Genitourinary: Reports: No Symptoms Musculoskeletal: Reports: No Symptoms - Patient Data Vital Signs - Most Recent: Last Vital Signs Temp 36.7 C 08/19/18 04:09 Pulse 72 08/19/18 04:09 Resp 16 08/19/18 04:09 BP 108/69 08/19/18 04:09 Pulse Ox 100 08/19/18 04:09 Weight - Most Recent: 119.748 kg I&O - Last 24 Hours: Intake & Output 08/18/18 08/18/18 08/19/18 14:59 22:59 06:59 Intake Total 300 180 Balance 300 180 Med Orders - Current: Current Medications Acetaminophen (Tylenol) 650 mg PO Q4H PRN PRN Reason: mild pain or fever Benzocaine/Menthol (Dermoplast Pain Relief [place]) 0 gm TOP ASDIRECTED PRN PRN Reason: Perineal Comfort Measure Docusate Sodium (Colace) 100 mg PO BID PRN PRN Reason: Constipation Last Admin: 08/18/18 20:55 Dose: 100 mg Emollient Ointment (Lansinoh Hpa) 0 gm TOP ASDIRECTED PRN PRN Reason: Sore Nipples Last Admin: 08/19/18 00:28 Dose: 1 tube Ibuprofen (Motrin) 600 mg PO Q6H PRN PRN Reason: Mild pain or fever Last Admin: 08/19/18 00:31 Dose: 600 mg Witch Sarai (Tucks) 1 pad TOP ASDIRECTED PRN PRN Reason: Perineal Comfort Measure Discontinued Medications Bupivacaine HCl (Sensorcaine-Mpf 0.25%) 20 ml .ROUTE .STK-MED ONE Stop: 08/17/18 22:01 Cefazolin Sodium (Ancef) Confirm Administered Dose 2 gm .ROUTE .STK-MED ONE Stop: 08/17/18 07:19 Cefazolin Sodium (Ancef) Confirm Administered Dose 1 gm .ROUTE .STK-MED ONE Stop: 08/17/18 07:20 Citric Acid/Sodium Citrate (Bicitra Solution) 30 ml PO ONETIME ONE Stop: 08/17/18 07:01 Last Admin: 08/18/18 21:21 Dose: Not Given Diphenhydramine HCl (Benadryl) 25 mg IVPUSH Q6H PRN PRN Reason: Itching Last Admin: 08/17/18 23:28 Dose: 25 mg Ephedrine Sulfate (Ephedrine Sulfate) 5 mg IVPUSH ASDIRECTED PRN PRN Reason: HYPOTENTSION Fentanyl (Sublimaze) 100 mcg EPIDUR Q3H PRN PRN Reason: Pain Last Admin: 08/17/18 19:03 Dose: 100 mcg Fentanyl/Bupivacaine HCl (Fentanyl/Bupivacaine/Ns 2 Mcg-0.125% 100 Ml) 100 ml EPIDUR ASDIRECTED PRN PRN Reason: Pain Last Admin: 08/17/18 19:03 Dose: 100 ml Cefazolin Sodium/Dextrose 1 gm (/ Premix) 50 mls @ 100 mls/hr IV ONETIME ONE Stop: 08/17/18 07:29 Last Admin: 08/18/18 21:20 Dose: Not Given Cefazolin Sodium/Dextrose 2 gm (/ Premix) 50 mls @ 100 mls/hr IV ONETIME ONE Stop: 08/17/18 07:29 Last Admin: 08/18/18 21:22 Dose: Not Given Lactated Ringer's (Ringers, Lactated) 1,000 mls @ 125 mls/hr IV ASDIRECTED [facility] Last Admin: 08/18/18 00:51 Dose: 125 mls/hr Oxytocin/Lactated Ringer's (Pitocin In Lr 10 Units/1,000 Ml) 10 unit in 1,000 mls @ 100 mls/hr IV ASDIRECTED [facility]; Protocol Lactated Ringer's (Ringers, Lactated) Confirm Administered Dose 0 mls @ as directed .ROUTE .STK-MED ONE Stop: 08/17/18 07:19 Ampicillin Sodium 2 gm/ Sodium (Chloride) 100 mls @ 200 mls/hr IV ONETIME ONE Stop: 08/17/18 08:19 Last Admin: 08/17/18 08:03 Dose: 200 mls/hr Ampicillin Sodium 1 gm/ Sodium (Chloride) 100 mls @ 200 mls/hr IV Q4H [facility] Last Admin: 08/18/18 04:15 Dose: 200 mls/hr Oxytocin/Lactated Ringer's (Pitocin In Lr 10 Units/1,000 Ml) 10 unit in 1,000 mls @ 12 mls/hr IV TITRATE RADHA; Protocol Last Titration: 08/18/18 05:20 Dose: 999 mls/hr Oxytocin/Lactated Ringer's (Pitocin In Lr 10 Units/1,000 Ml) 10 unit in 1,000 mls @ 120 mls/hr IV TITRATE RADHA; Protocol Oxytocin/Lactated Ringer's (Pitocin In Lr 10 Units/1,000 Ml) Confirm Administered Dose 10 unit in 1,000 mls @ as directed IV .STK-MED ONE Stop: 08/18/18 06:03 Last Admin: 08/18/18 06:00 Dose: 250 mls/hr Ketorolac Tromethamine (Toradol) Confirm Administered Dose 30 mg .ROUTE .STK- MED ONE Stop: 08/17/18 07:19 Metoclopramide HCl (Reglan) 10 mg IVPUSH ONETIME ONE Stop: 08/17/18 07:01 Last Admin: 08/18/18 21:22 Dose: Not Given Misoprostol (Cytotec) 600 mcg PO ONETIME ONE Stop: 08/18/18 05:24 Last Admin: 08/18/18 05:23 Dose: 600 mcg Misoprostol (Cytotec) 600 mcg .ROUTE .STK-MED ONE Stop: 08/17/18 22:01 Morphine Sulfate (Duramorph Pf) Confirm Administered Dose 10 mg .ROUTE .STK-MED ONE Stop: 08/17/18 07:19 Nalbuphine HCl (Nubain) 10 mg IVPUSH Q2H PRN PRN Reason: pain Ondansetron HCl (Zofran) Confirm Administered Dose 4 mg .ROUTE .STK-MED ONE Stop: 08/17/18 07:19 Ondansetron HCl (Zofran Odt) 4 mg PO Q4H PRN PRN Reason: Nausea/Vomiting Oxytocin (Pitocin) Confirm Administered Dose 20 unit .ROUTE .STK-MED ONE Stop: 08/17/18 07:19 Sodium Chloride (Saline Flush) 10 ml FLUSH ASDIRECTED PRN PRN Reason: Keep Vein Open - Infant Interaction Disposition, : [place] in Room with Family Infant Interaction: Holding Infant Feeding: Attempted ; Nursed Fair/Poor Support Person: - Recovery Exam Fundal Tone: Firm Fundal Level: 1 Fingerbreadths Below Umbilicus Fundal Placement: Midline Lochia Amount: Small Lochia Color: Rubra/Red Perineum Description: Intact, Minimal Bruising/Swelling Episiotomy/Laceration: None Bladder Status: Voiding Urinary Elimination: Voided - Exam General: Alert, Oriented, Cooperative GI/Abdominal Exam: Soft, Non-Tender Extremities: Normal Inspection Skin: Warm, Dry, Intact - Problem List & Annotations (1) 39 weeks gestation of SNOMED Code(s): 86181632 Code(s): Z3A.39 - 39 WEEKS GESTATION OF Status: Acute Current Visit: Yes (2) Vaginal delivery SNOMED Code(s): 548100023 Code(s): O80 - ENCOUNTER FOR FULL-TERM UNCOMPLICATED DELIVERY Status: Acute Current Visit: No - Problem List Review Problem List Initiated/Reviewed/Updated: Yes - My Orders Last 24 Hours: My Active Orders 08/18/18 05:57 Activity as Tolerated [RC] PER UNIT ROUTINE Vital Signs [RC] 21,03,09,15 Acetaminophen [Tylenol] 650 mg PO Q4H PRN Benzocaine/Menthol [Dermoplast Pain Relief [place]] See Dose Instructions TOP ASDIRECTED PRN Docusate Sodium [Colace] 100 mg PO BID PRN Ibuprofen [Motrin] 600 mg PO Q6H PRN Lanolin [Lansinoh HPA] See Dose Instructions TOP ASDIRECTED PRN Witch Sarai [Tucks] 1 pad TOP ASDIRECTED PRN Assess Lochia [WOMSER] Per Unit Routine Assess Uterine Involution [WOMSER] Per Unit Routine Breast Pump [WOMSER] Per Unit Routine Heat Therapy [OM.PC] PRN Ice Therapy [OM.PC] Per Unit Routine Perineal Care [OM.PC] Per Unit Routine Peripheral IV Discontinue [OM.PC] Routine Sitz Bath [OM.PC] Per Unit Routine 08/18/18 Breakfast Regular Diet [DIET] 08/19/18 05:57 Heat Therapy [OM.PC] PRN 08/19/18 06:45 Ready for Discharge [RC] PER UNIT ROUTINE - Assessment Assessment:: 28 y/o G3 now P3003 PPD#1 from at 39 1/7 wks - Plan Plan:: * Routine cares * Encourage breast feeding * Patient with some challenges breast feeding, plans on visiting with network pricing consultant this AM. If improves may be interested in discharge home today pending Pediatric evaluation
[2018-08-19 10:44] VITALS: BP 127/71
[2018-08-19] MEDS: Docusate Sodium 100 MG Cap PO PRN (11:03)
== END 2018-08-19 13:00 | disposition home or self-care (01) | DRG 560 ==
LOC: JD.OB 04:58 → INTOOBSV 04:58 → JD.OB 05:19 → OBSVTOIN 08-18 05:19 → JD.OB 08-18 05:19
PROVIDERS: ADMIT Obstetrics & Gynecology; ATTEND Obstetrics & Gynecology
PROC: 10E0XZZ Delivery of Products of Conception, External Approach (ICD-10-PCS; principal; 2018-08-18)
PROC: 3E033VJ Introduction of Other Hormone into Peripheral Vein, Percutaneous Approach (ICD-10-PCS; 2018-08-18)
PROC: 10907ZC Drainage of Amniotic Fluid, Therapeutic from Products of Conception, Via Natural or Artificial Opening (ICD-10-PCS; 2018-08-18)
PROC: 4A1HXCZ Monitoring of Products of Conception, Cardiac Rate, External Approach (ICD-10-PCS; 2018-08-18)
PROC: 10H07YZ Insertion of Other Device into Products of Conception, Via Natural or Artificial Opening (ICD-10-PCS; 2018-08-18)
DX: O32.1XX0 Maternal care for breech presentation, not applicable or unspecified (principal); O99.214 Obesity complicating childbirth; E66.01 Morbid (severe) obesity due to excess calories; O99.62 Diseases of the digestive system complicating childbirth; K21.9 Gastro-esophageal reflux disease without esophagitis; O76 Abnormality in fetal heart rate and rhythm complicating labor and delivery; F32.9 Major depressive disorder, single episode, unspecified; O99.344 Other mental disorders complicating childbirth; Z3A.39 39 weeks gestation of pregnancy; Z37.0 Single live birth
CPT/HCPCS: 01967; 36415; 51702; 59025; 59409; 59412; 85025; 86592; 86850; 86900; 86901; A9270-GY; J0290; J0690; J1200; J1885; J2270; J2405; J2590; J3010; J3490; J7030; J7120

== ENCOUNTER 2018-08-24 18:14 | Emergency (ER) | payer BC ==
[2018-08-24 18:51] VITALS: BP 153/101
[2018-08-24] MEDS ORDERED: Ketorolac 30 MG/ML SDV IVPUSH ONE (19:17)
[2018-08-24] MEDS ORDERED: Sodium Chloride 0.9% 10 ML Syringe FLUSH PRN (19:17)
[2018-08-24] MEDS ORDERED: Prochlorperazine 10 MG/2 ML SDV IVPUSH ONE (19:17)
[2018-08-24] MEDS ORDERED: diphenhydrAMINE 50 MG/ML SDV IVPUSH ONE (19:18)
--- NOTE | 2018-08-24 19:36 | EDM.PDOC ---
ED HPI GENERAL MEDICAL PROBLEM - General Chief Complaint: Headache Stated Complaint: headache Time Seen by Provider: 08/24/18 18:49 Source of Information: Reports: Patient History Limitations: Reports: No Limitations - History of Present Illness INITIAL COMMENTS - FREE TEXT/NARRATIVE: The patient presents with a headache. This started 2 days ago. She had a baby on August 18 and had an epidural. She went to the walk in clinic and they sent her over here because they thought she may be having a spinal headache. The patient has had migraines before but not this bad. She says the pain is behind both eyes and to both temples. She has no nausea or vomiting. She has some blurry vision at times but no double vision. The sun does bother her eyes. She has no numbness or weakness. Onset: Gradual Duration: Day(s): (2) Location: Reports: Head Quality: Reports: Sharp Severity: Severe Improves with: Reports: None Worsens with: Reports: None Associated Symptoms: Reports: Headaches. Denies: Chest Pain, Cough, Fever/ Chills, Nausea/Vomiting, Shortness of Breath - Related Data Allergies Allergy/AdvReac Type Severity Reaction Status Date / Time red dye Allergy Rash Verified 08/24/18 18:51 Chlorine Allergy Rash Uncoded 08/17/18 05:43 Home Meds: Home Meds PNV95/Ferrous Fumarate/FA [ Tablet] 1 tab PO DAILY 08/17/18 [History] buPROPion HCl [Wellbutrin Xl] 300 mg PO DAILY 08/17/18 [History] Ibuprofen [Motrin] 600 mg PO Q6H PRN tablet 08/19/18 [Rx] Omeprazole 20 mg PO DAILY 08/24/18 [History] metFORMIN [Glucophage] 500 mg PO DAILY 08/24/18 [History] Past Medical History Gastrointestinal History: Reports: GERD CLAIMS [employer] History: Reports: Polycystic Ovaries, Psychiatric History: Reports: Depression Other Psychiatric History: PPD - Past Surgical History GI Surgical History: Reports: Cholecystectomy Other Endocrine Surgeries/Procedures: On Metformin for "insulin resistance." Social & Family History - Family History Family Medical History: Noncontributory - Tobacco Use Smoking Status *Q: Never Smoker - Caffeine Use Caffeine Use: Reports: None - Recreational Drug Use Recreational Drug Use: No ED ROS GENERAL - Review of Systems Review Of Systems: See Below Constitutional: Reports: No Symptoms HEENT: Reports: No Symptoms Respiratory: Reports: No Symptoms Cardiovascular: Reports: No Symptoms Endocrine: Reports: No Symptoms GI/Abdominal: Reports: No Symptoms : Reports: No Symptoms Musculoskeletal: Reports: No Symptoms Skin: Reports: No Symptoms Neurological: Reports: Headache - Physical Exam Exam: See Below Exam Limited By: No Limitations General Appearance: Alert, No Apparent Distress Ears: Normal External Exam Nose: Normal Inspection Head Exam: Atraumatic, Normocephalic Neck: Normal Inspection, Supple, Non-Tender Respiratory/Chest: No Respiratory Distress, Lungs Clear, Normal Breath Sounds Cardiovascular: Regular Rate, Rhythm, No Edema, No Murmur GI/Abdominal: Soft, Non-Tender, No Organomegaly, No Mass Neuro Exam (Abbreviated): Alert, Oriented, No Motor/Sensory Deficits Extremities: Normal Inspection Course - Vital Signs Last Recorded V/S: Last Vital Signs Temp 98.2 F 08/24/18 18:48 Pulse 69 08/24/18 18:48 Resp 16 08/24/18 18:48 BP 153/101 H 08/24/18 18:48 Pulse Ox 99 08/24/18 18:48 - Orders/Labs/Meds Orders: Active Orders 24 hr Category Date Time Status Peripheral IV Care [RC] . DIRECTED Care 08/24/18 19:17 Active Sodium Chloride 0.9% [Saline Flush] Med 08/24/18 19:17 Active 10 ml FLUSH ASDIRECTED PRN Peripheral IV Insertion Adult [OM.PC] Routine Oth 08/24/18 19:17 Ordered Medication Orders Sodium Chloride (Saline Flush) 10 ml FLUSH ASDIRECTED PRN PRN Reason: Keep Vein Open Last Admin: 08/24/18 19:38 Dose: 10 ml Meds: Medications Generic Name Dose Route Start Last Admin Trade Name Freq PRN Reason Stop Dose Admin Sodium Chloride 10 ml 08/24/18 19:17 08/24/18 19:38 Saline Flush FLUSH 10 ml ASDIRECTED PRN Administration Keep Vein Open Discontinued Medications Generic Name Dose Route Start Last Admin Trade Name Freq PRN Reason Stop Dose Admin Diphenhydramine HCl 50 mg 08/24/18 19:18 08/24/18 19:32 Benadryl IVPUSH 08/24/18 19:19 50 mg ONETIME ONE Administration Ketorolac Tromethamine 30 mg 08/24/18 19:17 08/24/18 19:36 Toradol IVPUSH 08/24/18 19:18 30 mg ONETIME ONE Administration Prochlorperazine Edisylate 10 mg 08/24/18 19:17 08/24/18 19:34 Compazine IVPUSH 08/24/18 19:18 10 mg ONETIME ONE Administration - Re-Assessments/Exams Free Text/Narrative Re-Assessment/Exam: 08/24/18 19:36 I ordered an IV saline lock, compazine 10mg IV, toradol 30mg IV, and benadryl 50mg IV. 08/24/18 20:17 He headache is gone but she feels a little anxious. She does not want anything more and she would like to go. She feels better. I will discharge her home. Departure - Departure Time of Disposition: 20:20 Disposition: Home, Self-Care 01 Condition: Good Clinical Impression: Migraine - Discharge Information *PRESCRIPTION DRUG MONITORING PROGRAM REVIEWED*: Not Applicable *COPY OF PRESCRIPTION DRUG MONITORING REPORT IN PATIENT JAME: Not Applicable Referrals: PCP,None [Ordering Only Provider] - Forms: ED Department Discharge Additional Instructions: Go home and rest. If you still feel anxious in an hour you can take 25mg of benadryl. Please return if you are worse. - My Orders Last 24 Hours: My Active Orders 08/24/18 19:17 Peripheral IV Care [RC] . DIRECTED Sodium Chloride 0.9% [Saline Flush] 10 ml FLUSH ASDIRECTED PRN Peripheral IV Insertion Adult [OM.PC] Routine - Assessment/Plan Last 24 Hours: My Active Orders 08/24/18 19:17 Peripheral IV Care [RC] . DIRECTED Sodium Chloride 0.9% [Saline Flush] 10 ml FLUSH ASDIRECTED PRN Peripheral IV Insertion Adult [OM.PC] Routine
== END 2018-08-24 20:32 | disposition home or self-care (01) ==
LOC: JD.ED 18:14
DX: O99.355 Diseases of the nervous system complicating the puerperium (principal); G43.909 Migraine, unspecified, not intractable, without status migrainosus; F32.9 Major depressive disorder, single episode, unspecified; K21.9 Gastro-esophageal reflux disease without esophagitis; Z91.09 Other allergy status, other than to drugs and biological substances; Z79.899 Other long term (current) drug therapy
CPT/HCPCS: 96374; 96375; 99283; J0780; J1200; J1885; 99284